=== PATIENT | male | born 1980 | race Caucasian/White ===

== ENCOUNTER → 2016-06-23 | Outpatient (CLI) | payer OTHER ==
[~2016-06-23] MED LIST: 'PARAFON FORTE500 M1 PO; AMLODIPINE BESY1 TAB PO; AMLODIPINE BESY10 MG PO; ANAPROX DS550 MG PO; ATARAX,VISTARIL50 MG PO; AUGMENTIN 875875 MG PO; BACTRIM DS 8001 TA1 PO; BRIN20TA PO; BUPROPION HYDR100 MG PO; CATAFLAM50 MG PO; CELEXA40 MG PO; DILANTIN KAPSE100 MG PO; DILANTIN100 MG PO; EC NAPROSYN500 MG PO; GABAPENTIN800 MG PO; GEODON80 MG PO; HYDR25T PO; HYDROCHLOROTHIA50 M1 PO; KEFLEX500 MG PO; LEVAQUIN750 MG PO; LEVOTHYROXINE0.05 M1 PO; LIDODERM 5% PATC1 EA PO; LISINOPRIL40 MG PO; MEDROL DOSEPAK4 MG PO; MOTRIN800 MG PO; NAPROSYN500 MG PO; NEOMYCIN AND PO10 ML OT; NEURONTIN300 MG PO; OMEPRAZOLE40 MG PO; ONDANSETRON HYDR4 M1 PO; PAXIL40 MG PO; SEROQUEL200 MG PO; SINEMET 25-100M1 TAB PO; SUBOXONE 8 MG-1 EACH SL; SUBOXONE 8 MG-21 TA1 SL; SUBOXONE 8 MG-21 TA2 SL; SYNTHROID,LEVO50 MCG PO; TORADOL10 MG PO; TRAMADOL HCL50 MG PO; ULTRAM50 MG PO; VICODIN 5/500 505 MG PO; VICODIN 500 MG-1 TAB PO; VITAMIN D22000 UNIT PO; VITAMIN D50000 I3 PO; WELLBUTRIN100 MG PO; XANAX XR3 MG PO; XANAX0.5 MG PO; XANAX1 MG PO; XANAX2 M1 PO
[2016-06-23 14:45] LABS: URINE AMPHETAMINES < 1000 (1000ng/ml); URINE BARBITURATES < 200 (200ng/ml); URINE COCAINE < 300 (300ng/ml)
== END | disposition home or self-care (01) ==
LOC: LAB 14:13
PROVIDERS: Psychiatry & Neurology Psychiatry
DX: F11.20 Opioid dependence, uncomplicated (principal)

== ENCOUNTER 2019-01-11 18:06 | Inpatient (IN) | payer OTHER ==
[~2019-01-11] VITALS: Ht 185.4 cm; Wt 130.4 kg
[2019-01-11] VITALS (10 sets, daily range): BP systolic 164–189; BP diastolic 98–125
--- NOTE | ~2019-01-11 | EKG ---
[place], [place] ELECTROCARDIOGRAM REPORT NAME: HERNANDO TELLO UNIT #: [id number] ROOM: 405 DOCTOR: OPAL DRAFT REPORT BIRTHDATE: [birth year] [facility] Test Date: 2019-01-11 Test Time: 18:47:00 Pat Name: HERNANDO TELLO Department: Room: 405 Gender: M [employer]: : 1980 Requested By: RICARDO TAYLOR Order Number: [id number] Reading MD: Antoine Hastings MD Measurements Intervals [place] Rate: 102 P: 50 ME: 166 QRS: -38 QRSD: 94 T: 26 QT: 360 QTc: 469 Interpretive Statements Sinus tachycardia Possible inferior infarct, old No prior EKG Electronically Signed On 01-12-2019 8:02:41 PDT by Antoine Hastings MD CM:EKGRPT:ELECTROCARDIOGRAM REPORT [id number] RICARDO AGRAWAL DRAFT REPORT RICARDO TAYLOR DO
--- NOTE | ~2019-01-11 | DS ---
[place], [place] DISCHARGE SUMMARY NAME: HERNANDO TELLO UNIT #: [id number] ROOM: 405 DOCTOR: KESHIA DELCID MD BIRTHDATE: [birth year] DOS: 01/13/2019 DISCHARGE DIAGNOSES: 1. The patient with elevated blood pressures and headache. 2. Benign essential hypertension, untreated. 3. Migraine type headaches. 4. Lumbar spondylosis and chronic lower back pains. 5. Nicotine smoke dependence. 6. Obesity with BMI of 37.9. HOSPITAL COURSE: The patient presented with significant 1. Headaches and elevated blood pressures, which were untreated and he was not taking any medications for this. The patient was very anxious and in a hurry to leave right after admission to the hospital. He expected that I will get his blood pressure controlled in a few hours and he can be discharged to home. It was explained to the patient that it takes much longer and even outpatient office visits to be able to properly control his blood pressures because he cannot be suddenly put on large doses of antihypertensives, which can lead to a dangerous hypotension. The patient's blood pressures were monitored regularly and treatment increased and on his insistence, he is being discharged to home because he has to leave for home and has a flight to catch. Blood pressures have reduced to more reasonable 155/90 before discharge on present treatment. 1. Severe anxiety, which was treated with p.r.n. Xanax. 2. Obesity. The patient worked with Dietary. 3. Nicotine smoke dependence, treated with nicotine patch. 4. Gastroesophageal reflux disease and esophagitis, treated with omeprazole. 5. Chronic lower back pains and lumbar spondylosis, treated with gabapentin. The patient to follow up with me this week before he goes home. LABORATORY DATA: Normal CBC, normal CMP and chest x-ray. DISCHARGE MANAGEMENT: Clonidine 0.2 mg b.i.d., atenolol 50 mg a day, gabapentin 800 mg 3 times a day, omeprazole 20 mg a day. Follow up at the office this week before he catches a flight to his home. [place], [place] DISCHARGE SUMMARY NAME: HERNANDO TELLO UNIT #: [id number] ROOM: 405 DOCTOR: KESHIA DELCID MD BIRTHDATE: [birth year] KESHIA DELCID MD CM:ABENA [id number] KESHIA DELCID MD 01/13/194 interface
--- NOTE | ~2019-01-11 | WRIGHTHP ---
[place], [place] PATIENT HISTORY AND PHYSICAL EXAM NAME: [facility] [id number] UNIT #: [id number] ROOM: 405 DOCTOR: KESHIA DELCID MD BIRTHDATE: [birth year] DOS: HISTORY OF PRESENT ILLNESS: The patient is a 38-year-old gentleman with past medical history of: 1. Benign essential hypertension. 2. Major depression, recurrent, moderate. 3. History of rheumatoid arthritis. 4. Previous history of illicit drug abuse and seizures. Denies using drugs anymore. The patient says he is living in [place] and would like to go back this Thursday and wants to leave the hospital immediately and treated for hypertension. He has some headache that has moved from the right side of his head to the left side and it was like a migraine headache that he has had before. No chest pain, no shortness of breath, no other GI or urinary symptoms. The patient says he is under a lot of stress recently. REVIEW OF SYSTEMS: RESPIRATORY: No increasing shortness of breath. GASTROINTESTINAL: No nausea, vomiting, diarrhea, or constipation. CARDIOVASCULAR SYSTEM: No chest pains or palpitations. ALLERGIES: No known drug allergies. PHYSICAL EXAMINATION: GENERAL: Alert, oriented, in no visible distress, obese with BMI of 37.9. HEENT AND NECK: Extraocular movements are intact. Sclerae are anicteric. Oral mucosa is moist and clean. No obvious facial weakness. Neck is supple without any lymphadenopathy. No thyromegaly. No JVD. No carotid arterial bruits. LUNGS: Clear to auscultation. No wheezing. No rhonchi. CARDIOVASCULAR SYSTEM: Heart rate is regular in rate and rhythm. S1 and S2 normally audible. No significant murmur or any other abnormal cardiac sounds. ABDOMEN: Soft, nontender. No obvious organomegaly. Bowel sounds are present. No obvious herniation. EXTREMITIES: Without significant cyanosis or edema. Warm to touch. CENTRAL NERVOUS SYSTEM: Alert and oriented x 3. Cranial nerves II-XII are intact. Speech is normal. The patient is able to move all extremities. Normal muscle strength. Deep tendon reflexes are equal on both sides. Plantars were downgoing. IMPRESSION: 1. The patient has significant hypertension and headache, admitted for further management. I have started him on labetalol and his blood pressure is starting to improve. 2. Migraine type headaches. Labetalol should help with his recurrent migraine headaches. 3. The patient says he is chronically on gabapentin for pain control in his lower back and is being restarted. 4. Nicotine smoke dependence. The patient encouraged to stop smoking cigarettes and started on nicotine patch while he is at the hospital. The [place], [place] PATIENT HISTORY AND PHYSICAL EXAM NAME: HERNANDO TELLO UNIT #: [id number] ROOM: 405 DOCTOR: KESHIA DELCDI MD BIRTHDATE: [birth year] patient says he is desperate to smoke cigarettes, even when he is in the hospital and is signed out against medical advice. KESHIA DELCID MD CM:HISPHYS:PATIENT HISTORY AND PHYSICAL EXAMINATION [id number] KESHIA DELCID MD 01/12/19 1136 interface
[2019-01-11 19:07] LABS: BASO # 0.1 10*3/uL (0.0-0.1); BASO % 0.5 % (0.0-1.0); EOS # 0.1 10*3/uL (0.0-0.4); EOS % 1.2 % (1.0-4.0); HEMOGLOBIN 15.7 g/dl (14.0-18.0); LYMPH # 2.5 10*3/uL (1.3-4.4); LYMPH % 26.9 % (27.0-41.0); MEAN CORPUSCULAR HGB 29.7 pg (27.0-31.0); MEAN CORPUSCULAR HGB CONC 33.4 g/dl (33.0-37.0); MEAN PLATELET VOLUME 10.7 fl (9.6-12.3); MONO # 0.6 10*3/uL (0.1-1.0); MONO % 5.9 % (3.0-9.0); NEUT # 6.1 10*3/uL (2.3-7.9); NEUT % 65.1 % (47.0-73.0); PLATELET COUNT AUTOMATED 268 10*3/uL (130-400); RED BLOOD COUNT 5.28 10*6/uL (4.50-5.90); RED CELL DISTRI WIDTH 13.6 % (0-14.5); WHITE BLOOD COUNT 9.3 10*3/uL (4.8-10.8)
[2019-01-11 19:24] LABS: ALBUMIN 3.7 gm/dl (3.1-4.5); ALKALINE PHOSPHATASE 79 U/L (45-117); BUN 7 mg/dl (7-24); CHLORIDE 106 mmol/L (98-107); CREATININE 0.93 mg/dL (0.70-1.30); LIPASE 94 U/L (73-393); POTASSIUM 3.5 mmol/L (3.5-5.1); SGOT/AST 23 IU/L (3-35); SGPT/ALT 34 U/L (12-78); SODIUM 137 mmol/L (136-145); TOTAL PROTEIN 7.5 gm/dL (6.4-8.2)
[2019-01-11 19:25] LABS: ACT PARTIAL THROMBO TIME 25.9 SECONDS (20.0-32.1); INTERNATIONAL NORM RATIO 0.9 (2.0-3.5)
[2019-01-11 19:26] LABS: TROPONIN I < 0.015 ng/ml (<0.045)
[2019-01-12 07:53] VITALS: BP 184/112
[2019-01-12 09:04] VITALS: BP 164/108
[2019-01-12 12:00] VITALS: BP 155/100
[2019-01-12 16:00] VITALS: BP 160/107
[2019-01-12 18:33] VITALS: BP 174/110
[2019-01-12 20:00] VITALS: BP 183/117
[2019-01-13] VITALS: BP 181/122
[2019-01-13 01:30] VITALS: BP 177/114; BP 177/144
[2019-01-13 04:00] VITALS: BP 174/110
[2019-01-13] MEDS ORDERED: OMEPRAZOLE D/R20 MG PO (10:55)
[2019-01-13] MEDS ORDERED: GABAPENTIN800 MG PO (10:55)
[2019-01-13] MEDS ORDERED: CLONIDINE HCL0.2 MG PO (10:55)
[2019-01-13] MEDS ORDERED: ATENOLOL50 M1 PO (10:55)
== END 2019-01-13 11:40 | disposition home or self-care (01) | DRG 305 ==
LOC: ED 18:06 → 4E 21:24 → EDHOLD 21:24 → 4E 22:07
PROVIDERS: Emergency Medicine; ADMIT Internal Medicine
DX: I16.0 Hypertensive urgency (principal); E11.9 Type 2 diabetes mellitus without complications; I10 Essential (primary) hypertension; E66.9 Obesity, unspecified; G40.909 Epilepsy, unspecified, not intractable, without status epilepticus; F32.9 Major depressive disorder, single episode, unspecified; M06.9 Rheumatoid arthritis, unspecified; F17.210 Nicotine dependence, cigarettes, uncomplicated; G43.909 Migraine, unspecified, not intractable, without status migrainosus; G89.29 Other chronic pain; M47.816 Spondylosis without myelopathy or radiculopathy, lumbar region; F41.9 Anxiety disorder, unspecified; K21.0 Gastro-esophageal reflux disease with esophagitis; Z87.81 Personal history of (healed) traumatic fracture; Z71.6 Tobacco abuse counseling; Z68.37 Body mass index [BMI] 37.0-37.9, adult

== ENCOUNTER → 2024-10-14 | Outpatient (CLI) | payer OTHER ==
[~2024-10-14] MED LIST changes: +ATENOLOL50 M1 PO; +CLONIDINE HCL0.2 MG PO; +OMEPRAZOLE D/R20 MG PO
[2024-10-14 16:08] LABS: BASO # 0.1 10*3/uL (0.0-0.1); BASO % 0.6 % (0.0-1.0); EOS # 0.3 10*3/uL (0.0-0.4); EOS % 2.9 % (1.0-4.0); HEMATOCRIT 39.5 % (42.0-52.0); MEAN CELL VOLUME 84.9 fl (80.0-94.0); MEAN CORPUSCULAR HGB 27.5 pg (27.0-31.0); MEAN CORPUSCULAR HGB CONC 32.4 g/dl (33.0-37.0); MONO # 0.6 10*3/uL (0.1-1.0); MONO % 5.9 % (3.0-9.0); NEUT # 6.3 10*3/uL (2.3-7.9); NEUT % 58.6 % (47.0-73.0); PLATELET COUNT AUTOMATED 346 10*3/uL (130-400); RED BLOOD COUNT 4.65 10*6/uL (4.50-5.90); RED CELL DISTRI WIDTH 15.7 % (0-14.5); WHITE BLOOD COUNT 10.8 10*3/uL (4.8-10.8)
[2024-10-14 16:12] LABS: BILIRUBIN Negative (Negative); BLOOD Negative (Negative); CLARITY Clear (Clear); COLOR Yellow (Yellow); GLUCOSE Negative (Negative); KETONE Negative (Negative); LEUKO ESTERASE Negative (Negative); NITRITE Negative (Negative); PH 5.5 (4.5-8.0); UROBILINOGEN 0.2 E.U./dl (0.0-1.0)
[2024-10-14 16:21] LABS: ACT PARTIAL THROMBO TIME 26.8 SECONDS (20.0-32.1)
[2024-10-14 16:24] LABS: BACTERIA TRACE; HYALINE CAST 0-2
[2024-10-14 16:31] LABS: ALKALINE PHOSPHATASE 108 U/L (46-116); BUN 34 mg/dl (9-23); CHLORIDE 101 mmol/L (98-107); POTASSIUM 4.1 mmol/L (3.4-5.1); SGPT/ALT 15 U/L (5-49); TOTAL PROTEIN 8.5 gm/dL (6.0-8.0)
== END | disposition home or self-care (01) ==
LOC: LAB 15:18
PROVIDERS: ATTEND Oral & Maxillofacial Surgery
DX: Z01.818 Encounter for other preprocedural examination (principal); M48.061 Spinal stenosis, lumbar region without neurogenic claudication; M54.50 Low back pain, unspecified